=== PATIENT | female | born 1985 | race Two or more races ===

== ENCOUNTER 2024-03-18 12:28 | Emergency (ER) | payer MEDICAID, SELFPAY ==
[2024-03-18 12:38] VITALS: BP 125/83; RESP 19; TEMP 36.8; O2SAT 95
[2024-03-18 12:40] VITALS: BMI 32.8
--- NOTE | 2024-03-18 12:43 | XR_ITS ---
Examination: CT abdomen with intravenous contrast CT pelvis with intravenous contrast 2-D coronal reconstructions 2-D sagittal reconstructions Date and time of exam:March 18, 2024 1641 hours Comparison May 15, 2023 INDICATIONS: Left lower abdominal pain radiating to the lower pelvis beginning one week ago. CTDI: vol (mGy) 12.7 DLP: (mGycm) 816 Technique: Multiple axial sections of the abdomen and pelvis have been obtained. 64 slice high-resolution scanner used. 3 mm axial sections have been obtained, post intravenous injection 60 cc [id number] 2-D sagittal, coronal reconstructions obtained. Low dose protocols were performed. One or more of the following dose reduction techniques were used; automated exposure control, adjustment of the mA and/or KV according to patient size, use of iterative reconstruction technique. Findings: No focal liver or splenic lesions Absent gallbladder No pancreatic or adrenal mass No renal or ureteral calculi, no hydronephrosis Aorta normal size 20 mm fat-containing umbilical hernia Normal appendix No diverticulitis 30 mm left adnexal cyst with trace free fluid about the adnexal cyst Urinary bladder intact IMPRESSION: Normal appendix 20 mm fat-containing umbilical hernia Partially ruptured 30 mm left adnexal cyst, recommend pelvic sonography follow-up
--- NOTE | 2024-03-18 12:45 | EDNOTE_ITS ---
ED Abdominal Pain RME/HPI General Chief Complaint: Abdominal Pain Stated complaint: Left side lower abdominal pain since Friday Time seen by provider: 03/18/24 12:33 Arrival date/time: 03/18/24 12:28 RME / HPI RME / HPI narrative: 38-year-old female patient with significant history of anxiety, chronic migraine headache, came in for evaluation regarding left-sided abdominal pain. Onset of symptoms since Friday as worsening pain to the left lower quadrant, described as sharp pain/dull severity moderate. Denies any vomiting but complain of nausea. Denies any fever. Denies any diarrhea denies any constipation denies any dysuria denies any frequency or hematuria. Denies any other complaints no medications taken prior to arrival. Related Data Home Medications ?Medication ?Instructions ?Recorded ?Confirmed hdauceeezz-dqwialz-[id number] 1 tab PO DAILY PRN Migraine 01/07/19 08/01/23 [Fiorinal] Headache clonazepam 0.5 mg tablet 0.5 mg PO TID 08/27/19 08/01/23 ondansetron HCl 4 mg tablet 4 mg PO QID PRN Nausea 08/27/19 08/01/23 topiramate 25 mg tablet 25 mg PO BID 08/27/19 08/01/23 amitriptyline 10 mg tablet 40 mg PO QDAY 11/06/19 08/01/23 nitrofurantoin 100 mg PO QDAY 05/01/23 08/01/23 monohydrate/macrocrystals 100 mg capsule (Macrobid) oxycodone-acetaminophen 10 mg-325 1 tab PO .PRN PRN 08/01/23 08/01/23 mg tablet (Percocet) Previous Rx's ?Medication ?Instructions ?Recorded ibuprofen 800 mg tablet 800 mg PO Q8H PRN pain #30 tabs 03/18/24 Allergies Allergy/AdvReac Type Severity Reaction Status Date / Time latex Allergy Mild Rash Verified 08/01/23 14:56 Review of Systems Review of Systems Narrative Review of Systems: Review of system reviewed and within normal limits except mentioned in HPI ED Exam Narrative Physical exam: VITAL SIGNS: Reviewed. GENERAL APPEARANCE: Alert and interactive, follows commands, no acute distress, HEAD AND FACE: Non-traumatic. ENT: PERRL, pink conjunctivitis, eyelid no trauma, Mucous membrane moist. NECK: Supple, nontender, no nuchal rigidity. CHEST: No tenderness, no crepitus, no paradoxical movement, no retractions. LUNGS: Clear, well ventilated, symmetric, no rales, no wheezing, no ronchi, no stridor, good breath sounds bilaterally. HEART: Regular rate, regular rhythm, no murmur, no gallops. ABDOMEN: Soft, positive bowel sounds, nondistended, no guarding, left lower quadrant tenderness, no rebound, no masses, RECTAL: Deferred. GENITAL: Deferred. NEUROLOGICAL: Gross motor function intact sensory function intact, Appropriate for age. MUSCULOSKELETAL: low back nontender, full range of motion. EXTREMITIES: Nontender, full range of motion. SKIN: Color pink, dry, no rash, no lacerations, no abrasions, no contusions. LYMPHATICS: Deferred. Course Quality Measures none Orders Category Date Time Status CT Screening NOW Care 03/18/24 12:[address] abdomen pelvis w con Stat Exams 03/18/24 12:43 Completed CBC Stat Lab 03/18/24 12:50 Completed Comprehensive Metabolic Panel Stat Lab 03/18/24 12:50 Completed HCG Qualitative,Urine Stat Lab 03/18/24 13:19 Completed Lipase Stat Lab 03/18/24 12:50 Completed Partial Thromboplastin Time Stat Lab 03/18/24 12:50 Completed Prothrombin Time with INR Stat Lab 03/18/24 12:50 Completed UA, C/S IF [Urinalysis, C/S if Indicated] Stat Lab 03/18/24 13:19 Completed Ondansetron Odt [Zofran Odt] Med 03/18/24 12:43 Discontinued 4 mg PO X1 ONE Vital Signs Vital signs: Vital Signs Temperature 98.3 F 03/18/24 12:38 Respiratory Rate 19 03/18/24 12:38 Blood Pressure 125/83 03/18/24 12:38 Pulse Oximetry (%) 95 03/18/24 12:38 Oxygen Delivery Method Room Air 03/18/24 12:38 Abdominal Pain MDM MDM Narrative MDM Narrative:: 38-year-old female patient with significant history of anxiety, chronic migraine headache, came in for evaluation regarding left-sided abdominal pain. Onset of symptoms since Friday as worsening pain to the left lower quadrant, described as sharp pain/dull severity moderate. Denies any vomiting but complain of nausea. Denies any fever. Denies any diarrhea denies any constipation denies any dysuria denies any frequency or hematuria. Denies any other complaints no medications taken prior to arrival. Laboratory workup all came back unremarkable. No UTI. CT scan of the abdomen pelvis showed ruptured ovarian cyst/adnexal cyst on the left otherwise unremarkable. Patient received Zofran. On multiple reevaluation patient told me that her abdominal pain is almost gone. Results discussed with her. Patient data External records reviewed:: None Clinical information provided by:: patient Social determinants that could affect healthcare access:: none Patient has the following chronic illnesses:: Migraine headache, anxiety How is presenting disease/condition affected by chronic disease/condition?: uneffected by Evaluation data The following diagnostics were reviewed and interpreted by me:: lab results and radiology exam(s) Lab and/or radiology exams considered but not ordered:: None Interpretation Summary: Laboratory workup all came back unremarkable. No UTI. CT scan of the abdomen pelvis showed ruptured ovarian cyst/adnexal cyst on the left otherwise unremarkable. Medications / Prescriptions Medications or Prescriptions considered but not ordered:: None Medication administrations:: Medication Administration History Discontinued Medications Ondansetron HCl (Ondansetron Odt 4 Mg Tabrap) 4 mg PO X1 ONE; Protocol Stop: 03/18/24 12:44 Last Admin: 03/18/24 13:34 Dose: 4 mg Documented By: Zofran Consultations Consultation(s) initiated? (list below): No Diagnosis Differential diagnosis abdominal pain: abdominal pain and other (Ruptured ovarian cyst, UTI, diverticulitis) Most likely diagnosis given after review of the tests above:: Ruptured left adnexal cyst Admission Indicated Admission indicated?: not indicated Explain why admission is indicated or not indicated:: Stable Admission Request Was there a request for admission?: No Disposition Plan Disposition Plan: Discharge Discharge Attestation Discharge Attestation: The patient was given an opportunity to ask questions and understood the discharge instructions. Discharge instructions specifically effects, indications for sooner follow up or return to the emergency department, and the expected course of current diagnosis. Patient condition: Stable Discharge Plan Plan Patient Disposition: HOME (Self Care) Disposition Comment: Stable Prescriptions/Referrals Prescriptions/Med Rec: New ibuprofen 800 mg tablet 800 mg PO Q8H PRN (Reason: pain) Qty: 30 0RF No Action rgihhmdfvm-fyjzzdp-qvywjuth 1 tab PO DAILY PRN (Reason: Migraine Headache) nitrofurantoin monohyd/m-cryst [Macrobid] 100 mg capsule 100 mg PO QDAY Rx Instructions: must administer with a meal/food oxycodone-acetaminophen [Percocet] 10-325 mg tablet 1 tab PO .PRN PRN ondansetron HCl 4 mg Tablet 4 mg PO QID PRN (Reason: Nausea) clonazepam 0.5 mg Tablet 0.5 mg PO TID topiramate 25 mg Tablet 25 mg PO BID amitriptyline 10 mg tablet 40 mg PO QDAY Referrals: Brittni Hinkle PA-C [Primary Care Provider] - In 1 week Problem List Clinical Impression: Abdominal pain, Ovarian cyst rupture Patient/Caregiver Discharge Instructions Discharge Activity: activity as tolerated Education Materials: Ovarian Cysts Additional Instructions: Thank you for the opportunity for serving you today. You are stable for discharged . You are advised to: Follow-up with your PCP in 1 to 2 days and asked for referral to DOCUMENT PROCESSOR Return to ED for worsening of symptoms Increase oral fluids Take medication as prescribed Print Language: Macedonian Stand Alone Forms: Vivi Award Info., Patient Portal Info Letter PA/TJ Supervising Physician KWAKU/TJ Supervising Physician: MD Destinee
[2024-03-18 13:11] LABS: Basophils % (Auto) 0 % (0-2.5); Eosinophils # (Auto) 0.1 Thou/mm3 (0.0-0.5); Eosinophils % (Auto) 1 % (0-10); Hemoglobin 13.3 g/dL (12.0-16.0); Immature Granulocytes % (Auto) 0 % (0-0); Immature Granulocytes Auto 0.03 Thou/mm3 (0.00-0.00); Lymphocytes # (Auto) 2.6 Thou/mm3 (1.0-4.8); Lymphocytes % (Auto) 37 % (10-50); Mean Corpuscular HGB Conc 34.1 g/dl (31.0-37.0); Mean Corpuscular Hemoglobin 30.3 pg (25.0-35.0); Mean Corpuscular Volume 89 fL (80-100); Monocytes # (Auto) 0.5 Thou/mm3 (0.0-0.8); Monocytes % (Auto) 7 % (0-12); Neutrophils # (Auto) 3.8 Thou/mm3 (1.8-7.7); Neutrophils % (Auto) 54 % (37-80); Nucleated Red Blood Cell % 0 /100 WBC (0); Platelet Count 388 Thou/mm3 (140-440); RDW Standard Deviation 40.7 fL (36.4-46.3); Red Blood Count 4.39 Miln/mm3 (4.00-5.20)
[2024-03-18 13:19] LABS: Alanine Aminotransferase 12 U/L (10-49); Albumin, Serum 4.7 gm/dL (3.5-5.0); Albumin/Globulin Ratio 1.5 (1.2-2.2); Alkaline Phosphatase 90 U/L (46-116); Anion Gap 7 (7-16); Aspartate Amino Transferase 14 U/L (0-34); BUN/Creatinine Ratio 14 Ratio (12-20); Bilirubin,Total 0.3 mg/dL (0.3-1.2); Blood Urea Nitrogen 11 mg/dL (9-23); Calcium 9.3 mg/dL (8.3-10.6); Calcium (Corrected) 9.3 mg/dL (8.5-10.1); Carbon Dioxide 23.1 mMol/L (20.0-31.0); Chloride 106 mMol/L (98-107); Creatinine (Component) 0.8 mg/dL (0.6-1.3); Globulin 3.1 gm/dL (2.3-3.5); Glucose 86 mg/dL (74-106); Lipase 35 U/L (12-53); Osmolality,Calculated 270 (275-295); Potassium 3.6 mMol/L (3.4-5.1); Prothrombin Time 11.1 Seconds (9.0-12.2); Sodium 136 mMol/L (136-145); Total Protein 7.8 gm/dL (5.7-8.2); eGFR > 60 See Note
[2024-03-18] MEDS: ONDANSETRON ODT 4 MG TABRAP PO (13:34)
[2024-03-18 13:37] LABS: Collection Type, Urine Clean Catch
[2024-03-18 13:51] LABS: Bacteria,Urine Rare; Bilirubin,Urine Negative (Negative); Blood,Urine Negative (Negative); Color,Urine Lt-Yellow (Lt Yel-Yel); Culture Indicated,Urine Not Indicated; Glucose, Urine Negative (Negative); Ketones,Urine Negative (Negative); Leukocyte Esterase,Urine Positive (Negative); Nitrite,Urine Negative (Negative); Protein,Urine Negative (Neg - Trace); RBC,Urine 4 /hpf (0-3); Specific Gravity,Urine 1.015 (1.001-1.035); Squamous Epithelial Cell,Urine 14 /hpf (0-5); Urobilinogen,Urine Negative mg/dL (0.0-1.0); WBC,Urine 8 /hpf (0-5)
[2024-03-18 13:52] LABS: HCG Qualitative,Urine Negative
[2024-03-18 14:04] LABS: Clarity,Urine Hazy (Clear/Hazy)
== END 2024-03-18 18:42 | disposition home or self-care (01) ==
PROVIDERS: Nurse Practitioner Family; Emergency Provider Emergency Medicine; PCP Physician Assistant
DX: N83.202 Unspecified ovarian cyst, left side (principal)
CPT/HCPCS: 36415; 74177; 80053; 81001; 81025; 83690; 85025; 85610; 85730; 99285; A4649; Q0162; Q9967

== ENCOUNTER → 2025-03-09 | Outpatient (CLI) | payer MEDICAID, SELFPAY ==
--- NOTE | 2025-03-09 14:53 | XR_ITS ---
Examination: Foot, right, 3 views Technique: AP, oblique, lateral views foot, 3 views Date and time of exam: March 09, 2025, 1520 hours INDICATIONS: Right foot and ankle pain after falling 12 days ago FINDINGS: No acute fracture No dislocation No foreign body IMPRESSION: No acute fracture
--- NOTE | 2025-03-09 14:53 | XR_ITS ---
EXAMINATION: Ankle, right 3 views. Technique: Ankle AP, oblique, lateral 3 views Date and time of exam: March 09, 2025, 1520 hours INDICATION: Patient fell 12 days ago with injury to the ankle, ankle pain. FINDINGS: No ankle fracture or dislocation No foreign body IMPRESSION: No ankle fracture or dislocation
== END | disposition home or self-care (01) ==
LOC: CDIM 14:44
PROVIDERS: PCP Physician Assistant; Referring Provider Physician Assistant; Visit Provider Physician Assistant
DX: S99.911A Unspecified injury of right ankle, initial encounter (principal); W19.XXXA Unspecified fall, initial encounter
CPT/HCPCS: 73610; 73630

== ENCOUNTER 2025-04-22 08:19 | Outpatient (AMB) | payer MEDICAID, SELFPAY ==
--- NOTE | 2025-04-22 08:24 | AMB.OBINITIA ---
Vital Signs 04/22/25 08:42 Height 1.7 m Height Method Stated Weight 97.522 kg Weight Measurement Method Standing Scale BMI 33.6 BP 112/77 Blood Pressure Source Automatic Cuff Blood Pressure Location Left Upper Arm Position Sitting Respiration 18 Pulse 91 Pulse Source Monitor Temp 97.2 F Temp Source Oral Pulse Oximetry (%) 98 Oxygen Delivery Method Room Air Allergies/Home Meds Allergies & Medications Allergies latex Allergy (Mild, Verified 04/22/25 08:43) Rash Medication Reconciliation usezdidmpm-yavylkh-pvfwvglb [Fiorinal] 1 tab PO DAILY PRN Migraine Headache 01/07/19 [History Confirmed 04/22/25] clonazepam 0.5 mg tablet 0.5 mg PO TID 08/27/19 [History Confirmed 04/22/25] ondansetron HCl 4 mg tablet 4 mg PO QID PRN Nausea 08/27/19 [History Confirmed 04/22/25] topiramate 25 mg tablet 25 mg PO BID 08/27/19 [History Confirmed 04/22/25] amitriptyline 10 mg tablet 40 mg PO QDAY 11/06/19 [History Confirmed 04/22/25] nitrofurantoin monohydrate/macrocrystals 100 mg capsule (Macrobid) 100 mg PO QDAY 05/01/23 [History Confirmed 04/22/25] oxycodone-acetaminophen 10 mg-325 mg tablet (Percocet) 1 tab PO .PRN PRN 08/01/23 [History Confirmed 04/22/25] ibuprofen 800 mg tablet 800 mg PO Q8H PRN pain #30 tabs 03/18/24 [Rx Confirmed 04/22/25] ondansetron 4 mg disintegrating tablet 4 mg PO Q8H PRN nausea and vomiting #30 tabs 04/22/25 [Rx] Intake Visit Data Collection New Patient or Established: Established Patient (seen at [facility] within 3 years) Reason for Visit:: OBI Seen by Clinical Staff ONLY (RN/MA): No 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 Do You Feel Safe at Home: Yes Authorities Contacted: N/A PCP or OBGYN visit in last 3 months: Yes Date of Last PCP or OBGYN visit: 03/18/25 Hx Now: Yes Are you currently on any form of Control: No Pain Present Currently: No Pain Scale Used: Peralta-Galvez/Numerical Pain scale:: 0 Smoking Status Smoking Status: Never smoker Immunizations Flu Vaccine in the Last 12 Months: No Flu Vaccine Exclusion Criteria: Refused by Patient and No Exclusion Criteria Questionnaires Covid-19 Vaccine Questionnaire Has patient been vacinated for Covid-19 Have you been vacinated for Covid-19: Yes PHQ-9 PHQ-2 Over the last 2 weeks, how often have you been bothered by any of the following problems? 1. Little interest or pleasure in doing things: not at all 2. Feeling down, depressed, or hopeless: not at all Total score: 0 PHQ-9 3. Trouble falling or staying asleep, or sleeping too much: Not at all 4. Feeling tired or having little energy: Not at all 5. Poor appetite or overeating: Not at all 6. Feeling bad about yourself - or that you are a failure or have let yourself or your family down: Not at all 7. Trouble concentrating on things, such as reading the newspaper or watching television: Not at all 8. Moving or speaking so slowly that other people could have noticed? - Or the opposite - being so fidgety or restless that you have been moving around a lot more than usual: not at all 9. Thoughts that you would be better off or of hurting yourself in some way: Not at all Total score: 0 If you checked off any problems, how difficult have these problems made it for you to do your work, take care of things at home, or get along with other people?: not difficult at all Source: Developed by Drs. Ascencion Umaña, Lily Merchant, Jaun Rocha and colleagues, with an educational mo from [employer]. Depression screen completed yes Social History Living Situation History Marital Status: Single Lives With: Family Housing: House Tobacco History Smoking Status: Never smoker Second Hand Smoke Exposure: No Alcohol History Alcohol Intake: Never Domestic Abuse History Do You Feel Safe at Home: Yes History of Present Illness HPI Narrative 40-year-old 3 para 2 for OBI. Last period February 13, 2025. Patient reports this was normal.. She had some spotting in February. Patient is here with her partner and they are both happy about the . Patient reports that she does smoke marijuana for her migraines. She has both a history of chronic anxiety and chronic migraines and chronic depression. Patient sees a neurologist in [place]. And he manages her migraines and anxiety. And then she has a therapist that she sees at [facility]. And that therapist manages her depression and her medications. She reports that both her neurologist and the therapist worked together to control her migraine symptoms and her depression and they work together for medication. So patient denies bleeding at this time. She has a history of appendectomy 2017. And then her gallbladder removed 2020. Patient takes several medications. She is taking her prenatals. She takes amitriptyline 25 mg at night. She also takes Klonopin 0.5 mg 3 times a day and she takes Topamax at at bedtime. She also takes 12.5 of trazodone and then Lexapro 10 mg daily for her depression. For her migraines for pain she takes Floricet at with codeine every 8 hours as needed. So she takes it as a as needed if that does not help then she will take a Percocet for severe migraines 3 hours after Floricet. Patient states that she has not needed to take any of her pain meds for migraines in the past few weeks and that the medication she is on now seems to control them pretty good. The migraine she get can be severe and debilitating. Sometimes she has an aura before the migraine. She denies any bleeding or cramping at this time. Increased nausea was reported. The last medication she takes is gabapentin 100 mg 3 times a day. MAIL DELIVERY SUPERVISOR: Past Medical History Past Medical History: Yes Hx Neurological Disorders, No Hx Cardiac Disorders, No Hx Cancer, No Hx Blood Disorders, Yes Hx Gastrointestinal Disorders, No Hx Renal Disease, No Hx Diabetes Mellitus Type 1 and No Hx Diabetes Mellitus Type 2 OB Initial Visit OB Flowsheet OB Flowsheet Initial Weight: Not Recorded Date <del>?</del> EGA Weight BP Alb Glu CTX Pres Fundal ht FHR Mov Dilation Station Effacement Hx Notes Visit Note 04/22/25 <del>?</del> 9w 5d 97.522 kg 112/77 absent unknown 9 absent 40-year-old 3 para 2 for OBI. Patient had some spotting February. No bleeding now. History of for appendectomy October 2017. And cholecystectomy 2020. She has history of chronic depression, chronic anxiety and chronic migraines. She sees a neurologist in [place]. And she also sees a therapist for her depression. Both are working together to help control her symptoms. She also complains of some nausea. No bleeding now. Patient is taking amitriptyline 25 mg nightly. And Klonopin 0.5 mg. She also takes Topamax 3 times a day. She takes trazodone 12.5 mg nightly and Lexapro 10 mg daily. And then she also takes gabapentin 100 p.o. 3 times daily anxiety. Scheduled ultrasound at [facility] for viability. On office sono I could not see a pole. We did beta quant's x 2 and OB panel. Discussed SAB precautions. Patient advised to continue her medications for anxiety and depression. And to continue to follow-up with her therapist and her neurologist. I also asked her to let her neurologist know that she was . And patient will return in 2 weeks for follow-up this . And Zofran 4 mg every 8 hours given Menstrual History Menstrual reliability: definite Flow: normal Menstrual regularity: regular Monthly: Yes Age at menarche: 12 On control pills at conception: No OB History : 3 Para: 2 # of Living Children: 2 Delivery History 1st : Child's name: NOT PROVIDED date: 06/22/09 sex: female Delivery type: vaginal Delivery complications: NA 2nd : Child's name: NA date: 04/05/19 sex: female Delivery type: vaginal History of depression before or after : No Infection History & Risk Evaluation History of STDs: none HIV risk evaluation: low risk Hepatitis B risk evaluation: low risk Patient or partner has history of Genital Herpes: No Varicella/chicken pox status: immunized Genetic Screening & History Genetic Screening/Teratology Counseling - Includes patient, baby's father, or anyone in either family with: 1. Patient's age 35 years or older as of estimated date of delivery: Yes 2. Thalassemia (Mongolian, Lao, Mediterranean, or Background); MCV less than 80: No 3. Neural Tube Defect (Meningomyelocele, Spina Bifida, or Anencephaly): No 4. Congenital Heart Defect: No 5. Down Syndrome: No 6. Matthew-Sachs (Ashkenazi Hoahaoism, Cajun, [place]): No 7. Allyn Disease (Ashkenazi Hoahaoism): No 8. Familial Dysautonomia (Ashkenazi Hoahaoism): No 9. Sickle Cell Disease or Trait (): No 10. Hemophilia or other blood disorders: No 11. Muscular Dystrophy: No 12. Cystic Fibrosis: No 13. Jeff Davis's Chorea: No 14. Mental Retardation/Autism: No 15. Other inherited genetic or chromosomal disorder: No 16. Maternal Metabolic Disorder (EG,TYPE 1 Diabetes, PKU): No 17. Patient or baby's father had a child with defects not listed above: No 18. Recurrent loss or a stillbirth: No 19. Medications (including supplements, vitamins, herbs or otc drugs)/illicit/recreational drugs/alcohol since last menstrual period: No 20. Any other: No Infection History 1. Live with someone with TB or exposed to TB: No 2. Rash or viral illness since last menstrual period: No 3. Hepatitis B,C: No Other (see comments) Source: [employer] Review of Systems Review of Systems Systems Reviewed: All systems reviewed, normal except as documented Exam General Limitations: no limitations General Appearance: alert, in no apparent distress, comfortable, cooperative, healthy appearing, well developed and well groomed Neck Neck exam: Present normal inspection, full ROM and trachea midline Chest Chest inspection: Present normal inspection and symmetric chest wall rise Resp Respiratory exam: Present normal lung sounds bilaterally Card Cardiovascular exam: Present regular rate, normal rhythm and normal heart sounds Abdominal Abdominal exam: Present soft and normal bowel sounds Psych Psychiatric exam: Present normal affect and normal mood Office Procedures OBC Clinic LOC & Office Proc's Nursing/Assessment Patient Status: Established Patient OB Clinic Nursing Assessment: Medication Reconciliation, Update PMH in EMR and Vital Signs OB Clinic Coordination of Care: Complex Care and Chronic Disease 1-5, Consent,records obtained, informed consent, Education Simp Pt/Fam, Lab and Imaging orders, Results/Orders obtained and Staff clarify orders Special Needs: Heart tones Established Patient Charge Established Patient Point Assignment: 135 Established Patient Point Charge: EP Level 4 (120-155) Assessment & Plan Diagnosis / Problem List (1) Encounter for supervision of high risk in first trimester, antepartum: Status: Acute (2) Depression affecting : Status: Acute (3) Migraine: Status: Acute Plan Schedule ultrasound at [facility] for viability and dating. Beta-hCG x 2. OB panel today. Continue prenatals. Zofran 4 mg every 8 hours for nausea and comfort discussed comfort measures. And we discussed SAB precautions as well and patient will follow-up after her labs and ultrasound for dating. Additional Plan Follow Up: 2 Weeks (obc)
[2025-04-22 08:42] VITALS: BP 112/77; PULSE 91; RESP 18; TEMP 36.2; O2SAT 98; BMI 33.6
== END 2025-04-22 09:22 | disposition home or self-care (01) ==
PROVIDERS: Supervising Provider Advanced Practice Midwife; Visit Provider Advanced Practice Midwife
DX: O09.521 Supervision of elderly multigravida, first trimester (principal); O09.891 Supervision of other high risk pregnancies, first trimester; O99.341 Other mental disorders complicating pregnancy, first trimester; F32.A Depression, unspecified; O99.351 Diseases of the nervous system complicating pregnancy, first trimester; G43.909 Migraine, unspecified, not intractable, without status migrainosus; F41.9 Anxiety disorder, unspecified; Z3A.09 9 weeks gestation of pregnancy; Z90.49 Acquired absence of other specified parts of digestive tract; Z79.899 Other long term (current) drug therapy; Z91.040 Latex allergy status
CPT/HCPCS: 99214; G0463

== ENCOUNTER 2025-04-23 12:40 | Emergency (ER) | payer MEDICAID, SELFPAY ==
[2025-04-23 12:41] VITALS: BMI 33.6
[2025-04-23 13:43] VITALS: BP 164/75; PULSE 89; RESP 20; TEMP 36.9; O2SAT 95
--- NOTE | 2025-04-23 13:47 | XR_ITS ---
Examination: OB Transvaginal ultrasound of the pelvis, complete Technique: Transvaginal sonographic images pelvis performed using smith scale imaging Exam date and time: April 23, 2025, 1431 hours INDICATIONS: Vaginal bleeding beginning 3 hours ago, early by history FINDINGS: Uterus 9.2 cm CRL 0.4 cm corresponds to 6 weeks 1 day gestational age Cardiac motion 115 bpm No subchorionic hemorrhage Right ovary 2.1 cm arterial flow Left ovary obscured by bowel gas IMPRESSION: Viable intrauterine gestation 6 weeks 1 day.
--- NOTE | 2025-04-23 13:47 | PD.EDRME ---
Rapid Medical Screening Exam RME Arrival date/time: 04/23/25 12:40 This is a 40-year-old female that comes into the emergency room with complaints of vaginal bleeding and lower abdominal cramping. Patient states that she thinks she is approximately 9 weeks . Patient had her last menstrual period sometime in January she thinks. Patient was seen by her COMMERCIAL SALES SPECIALIST and they were not able to see the baby in the ultrasound. Patient is complaining of dysuria. I have greeted and performed a focused initial assessment of this patient. Initial appropriate labs ordered at this time. A comprehensive ED assessment and evaluation of the patient and analysis of all test and completion of medical decision making process will be conducted by additional ED provider. Chief Complaint: Vaginal Bleeding Time Seen by Provider: 04/23/25 13:29 Exam: Alert and oriented, breathing even and unlabored skin warm and dry Clinical Impression: Vaginal bleeding
[2025-04-23 14:11] LABS: Collection Type, Urine Voided
[2025-04-23 14:13] LABS: Basophils # (Auto) 0.0 Thou/mm3 (0.0-0.2); Basophils % (Auto) 0 % (0-2.5); Eosinophils # (Auto) 0.1 Thou/mm3 (0.0-0.5); Eosinophils % (Auto) 1 % (0-10); Hematocrit 37.7 % (36.0-46.0); Hemoglobin 12.8 g/dL (12.0-16.0); Immature Granulocytes Auto 0.02 Thou/mm3 (0.00-0.00); Lymphocytes # (Auto) 2.7 Thou/mm3 (1.0-4.8); Lymphocytes % (Auto) 35 % (10-50); Mean Corpuscular HGB Conc 34.0 g/dl (31.0-37.0); Mean Corpuscular Hemoglobin 30.5 pg (25.0-35.0); Mean Corpuscular Volume 90 fL (80-100); Monocytes # (Auto) 0.6 Thou/mm3 (0.0-0.8); Monocytes % (Auto) 8 % (0-12); Neutrophils # (Auto) 4.4 Thou/mm3 (1.8-7.7); Neutrophils % (Auto) 56 % (37-80); Nucleated Red Blood Cell # 0.00 Thou/mm3 (0.00-0.00); Nucleated Red Blood Cell % 0 /100 WBC (0); Platelet Count 367 Thou/mm3 (140-440); RDW Standard Deviation 41.0 fL (36.4-46.3); Red Blood Count 4.19 Miln/mm3 (4.00-5.20); White Blood Count 7.8 Thou/mm3 (3.6-11.0)
[2025-04-23 14:43] LABS: Alanine Aminotransferase 13 U/L (10-49); Albumin, Serum 4.3 gm/dL (3.5-5.0); Albumin/Globulin Ratio 1.4 (1.2-2.2); Alkaline Phosphatase 77 U/L (46-116); Anion Gap 13 (7-16); Aspartate Amino Transferase 14 U/L (0-34); BUN/Creatinine Ratio 10 Ratio (12-20); Bilirubin,Total < 0.2 mg/dL (0.3-1.2); Blood Urea Nitrogen 8 mg/dL (9-23); Calcium 8.6 mg/dL (8.3-10.6); Calcium (Corrected) 8.6 mg/dL (8.5-10.1); Carbon Dioxide 19.0 mMol/L (20.0-31.0); Chloride 109 mMol/L (98-107); Creatinine (Component) 0.8 mg/dL (0.6-1.3); Estimated Creatinine Clearance 113.2 mL/min (>60); Globulin 3.0 gm/dL (2.3-3.5); Glucose 92 mg/dL (74-106); Osmolality,Calculated 279 (275-295); Potassium 3.8 mMol/L (3.4-5.1); Sodium 141 mMol/L (136-145); Total Protein 7.3 gm/dL (5.7-8.2); eGFR > 60 See Note
[2025-04-23 15:07] LABS: Bilirubin,Urine Negative (Negative); Blood,Urine 1+ (Negative); Clarity,Urine Clear (Clear/Hazy); Color,Urine Lt-Yellow (Lt Yel-Yel); Culture Indicated,Urine Not Indicated; Glucose, Urine Negative (Negative); Ketones,Urine Negative (Negative); Leukocyte Esterase,Urine Positive (Negative); Nitrite,Urine Negative (Negative); PH,Urine 6.0 (5.0-7.0); Protein,Urine Negative (Neg - Trace); RBC,Urine 1 /hpf (0-3); Specific Gravity,Urine 1.022 (1.001-1.035); Squamous Epithelial Cell,Urine < 1 /hpf (0-5); Urobilinogen,Urine Negative mg/dL (0.0-1.0); WBC,Urine 1 /hpf (0-5)
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
== END 2025-04-23 17:50 | disposition home or self-care (01) ==
PROVIDERS: Emergency Provider Nurse Practitioner Family; PCP Physician Assistant
DX: O20.9 Hemorrhage in early pregnancy, unspecified (principal); Z3A.01 Less than 8 weeks gestation of pregnancy
CPT/HCPCS: 36415; 76817; 80053; 81001; 84702; 85025; 86850; 86900; 86901; 99283